=== PATIENT | female | born 1990 | race Caucasian/White ===

== ENCOUNTER 2016-09-03 12:29 | Emergency (ER) | payer MEDICAID ==
[~2016-09-03] VITALS: Ht 154.9 cm; Wt 98.9 kg
[2016-09-03 12:48] VITALS: BP_SYST 115
[2016-09-03 14:46] VITALS: BP_SYST 122
== END 2016-09-03 14:46 | disposition home or self-care (01) ==
LOC: SED 12:32
DX: O26.891 Other specified pregnancy related conditions, first trimester (principal); R10.9 Unspecified abdominal pain; Z3A.01 Less than 8 weeks gestation of pregnancy; Z98.890 Other specified postprocedural states
CPT/HCPCS: 36415; 76801; 76817; 84702-TC; 99285